=== PATIENT | male | born 1970 | race Hispanic/Latino ===

== ENCOUNTER 2017-05-16 12:00 | Observation (INO) | payer MEDICAID ==
[~2017-05-16] VITALS: Ht 170.2 cm; Wt 82.6 kg
[2017-05-16 13:45] LABS: BASOPHILS % (AUTO) 0.5 % (0.0-5.0); EOSINOPHILS % (AUTO) 0.3 % (0.0-8.0); HEMATOCRIT 46.1 % (42-54); MEAN CORPUSCULAR HEMOGLOBIN 31.2 pg (27.0-33.0); MEAN CORPUSCULAR HGB CONC 33.9 g/dL (32.0-36.0); MEAN CORPUSCULAR VOLUME 91.9 fL (79-99); NEUTROPHILS % (AUTO) 70.2 % (40.0-77.0); PLATELET COUNT (AUTO) 262 K/uL (130-400); RED BLOOD CELL COUNT(AUTO) 5.02 MIL/uL (4.50-6.20); RED CELL DISTRIBUTION WIDTH 14.4 % (11.0-15.5); WHITE BLOOD COUNT (AUTO) 6.9 K/uL (4.8-10.8)
[2017-05-16] MEDS ORDERED: ASPI-1012 PO (17:05)
[2017-05-16] MEDS ORDERED: AMLO1CAP10 PO (17:05)
[2017-05-16] MEDS ORDERED: SUCR1TAB2 PO (17:05)
[2017-05-16] MEDS ORDERED: RISP1TAB26 PO (17:05)
[2017-05-16] MEDS ORDERED: BUDE10.2 IH (17:07)
[2017-05-16] MEDS ORDERED: PRAV40TA3 PO (17:07)
[2017-05-16] MEDS ORDERED: NITR0.4T SL (17:08)
[2017-05-16] MEDS ORDERED: NABU500T3 PO (17:08)
[2017-05-16] MEDS ORDERED: CEFD300C3 PO (17:10)
[2017-05-16 22:12] LABS: RAPID PLASMA REAGIN REACTIVE (NONREACTIVE); RAPID PLASMA REAGIN TITER REACTIVE 1:1 (NONREACTIVE)
[2017-05-17] VITALS (19 sets, daily range): BP systolic 94–119; BP diastolic 53–86
[2017-05-17] MEDS ORDERED: LACTATED RINGERS 1000ML 1,000 ML IV ONE (07:06)
[2017-05-17] MEDS: CEFAZOLIN SODIUM 1 GM VIAL ONE ×2 (07:27→07:38)
[2017-05-17] MEDS ORDERED: ROPIVACAINE 0.5% 5MG/ML 30ML IJ ONE (07:28)
[2017-05-17] MEDS ORDERED: PROPOFOL 10 MG/ML 20ML VIAL IV ONE ×2 (07:31→08:34)
[2017-05-17] MEDS ORDERED: NEOSTIGMINE METHYLSULFATE 1MG/ML IV ONE (07:31)
[2017-05-17] MEDS ORDERED: DEXAMETHASONE SOD PHOSPHATE 10MG/ML 1ML VIAL ONE (07:31)
[2017-05-17] MEDS ORDERED: SUCCINYLCHOLINE 200MG/10ML SYR ONE (07:31)
[2017-05-17] MEDS ORDERED: GLYCOPYRROLATE 0.2 MG/ML 5 ML VIAL ONE (07:31)
[2017-05-17] MEDS ORDERED: ONDANSETRON HCL 4 MG/2 ML VIAL ONE (07:31)
[2017-05-17] MEDS ORDERED: LIDOCAINE PF 2% 5ML ABBOJECT ONE (07:31)
[2017-05-17] MEDS ORDERED: MIDAZOLAM HCL 1 MG/ML 2ML VIAL ONE (07:32)
[2017-05-17] MEDS ORDERED: FENTANYL CITRATE PF 50 MCG/1 ML 2ML VIAL ONE (07:32)
[2017-05-17] MEDS ORDERED: MEPERIDINE-PF 25 MG/ML SYG ONE ×2 (09:23→09:34)
[2017-05-17 09:37] LABS: HEMATOCRIT 42.1 % (42-54)
[2017-05-17] MEDS ORDERED: DEXTROSE 5%-LACTATED RINGERS 1,000 ML IV SCH (10:45)
[2017-05-17] MEDS ORDERED: ACETAMINOPHEN 325 MG TAB PO PRN (11:00)
[2017-05-17] MEDS ORDERED: MAGNESIUM HYDROXIDE 30 ML/UDCUP PO PRN (11:00)
[2017-05-17] MEDS ORDERED: BISACODYL 10 MG SUPP.RECT RC PRN (11:00)
[2017-05-17] MEDS ORDERED: PROMETHAZINE HCL 25 MG/ML 1ML AMPULE IM PRN (11:00)
[2017-05-17] MEDS ORDERED: MORPHINE SULFATE 10 MG/ML 1ML SYG IM PRN (11:00)
[2017-05-17] MEDS ORDERED: KETOROLAC TROMETHAMINE 15MG/ML IM PRN (12:15)
[2017-05-17] MEDS ORDERED: MORPHINE SULFATE 4 MG/1ML SYG IV PRN ×2 (12:15→14:15)
[2017-05-17] MEDS ORDERED: TRAMADOL HCL 50 MG TABLET PO SCH (12:15)
[2017-05-17] MEDS: WATER FOR INJECTION,STERILE 20 ML VIAL IJ SCH ×2 (13:41→21:00)
[2017-05-17] MEDS: CEFAZOLIN SODIUM 1 GM VIAL IVP SCH ×2 (13:41→21:00)
[2017-05-17] MEDS: TRAMADOL HCL 50 MG TABLET PO PRN (16:41)
[2017-05-17 17:51] LABS: HEMATOCRIT 41.6 % (42-54)
[2017-05-17] MEDS: KETOROLAC TROMETHAMINE 15MG/ML IV PRN (20:59)
[2017-05-17] MEDS ORDERED: NITROGLYCERIN 0.4 MG SL TAB SL PRN (23:30)
[2017-05-18] VITALS: BP 133/78
[2017-05-18] MEDS ORDERED: MORPHINE SULFATE 2 MG/ML 1ML SYG ONE ×2 (00:20→06:43)
[2017-05-18 00:27] LABS: HEMATOCRIT 39.7 % (42-54)
[2017-05-18 04:08] VITALS: BP 135/80
[2017-05-18] MEDS: ALBUTEROL SULFATE 0.083% 2.5 MG/3 ML INH IH SCH ×2 (05:49→11:01)
[2017-05-18] MEDS: CEFAZOLIN SODIUM 1 GM VIAL IVP SCH (05:50)
[2017-05-18] MEDS: WATER FOR INJECTION,STERILE 20 ML VIAL IJ SCH (05:50)
[2017-05-18] MEDS ORDERED: BUDESONIDE 0.5 MG/2 ML INH IH SCH ×2 (06:00)
[2017-05-18 06:14] LABS: HEMATOCRIT 39.9 % (42-54); MEAN CORPUSCULAR HEMOGLOBIN 31.4 pg (27.0-33.0); MEAN CORPUSCULAR HGB CONC 34.3 g/dL (32.0-36.0); MEAN CORPUSCULAR VOLUME 91.5 fL (79-99); PLATELET COUNT (AUTO) 216 K/uL (130-400); RED BLOOD CELL COUNT(AUTO) 4.36 MIL/uL (4.50-6.20); RED CELL DISTRIBUTION WIDTH 14.4 % (11.0-15.5); WHITE BLOOD COUNT (AUTO) 7.3 K/uL (4.8-10.8)
[2017-05-18 06:22] LABS: POTASSIUM 3.9 mmol/L (3.5-5.1)
[2017-05-18] MEDS ORDERED: FLU VACC QS2017-18 36MOS UP/PF 60 MCG/0.5 ML ML IM NR (06:30)
[2017-05-18] MEDS: SUCRALFATE 1 GM TABLET PO SCH ×2 (06:47→11:53)
[2017-05-18 08:00] VITALS: BP 136/83
[2017-05-18] MEDS: TRAMADOL HCL 50 MG TABLET PO PRN (08:35)
[2017-05-18] MEDS ORDERED: LOSARTAN 50 MG TABLET PO SCH (09:00)
[2017-05-18] MEDS ORDERED: ASPIRIN 325 MG TABLET PO SCH (09:00)
[2017-05-18] MEDS ORDERED: RISPERIDONE 1 MG TABLET PO SCH (09:00)
[2017-05-18] MEDS ORDERED: AMLODIPINE BESYLATE 2.5 MG TAB PO SCH (09:00)
[2017-05-18] MEDS ORDERED: CEFDINIR 300 MG PO SCH (09:00)
[2017-05-18] MEDS ORDERED: NABUMETONE 500 MG PO SCH (09:00)
[2017-05-18] MEDS: KETOROLAC TROMETHAMINE 15MG/ML IV PRN (10:16)
[2017-05-18 11:56] VITALS: BP 155/80
[2017-05-18 15:45] VITALS: BP 156/77
[2017-05-18] MEDS ORDERED: ATORVASTATIN CALCIUM 10 MG TABLET PO SCH (21:00)
== END 2017-05-18 17:00 | disposition home or self-care (01) ==
LOC: EDSTATUS 12:00 → DAHIP 05-17 06:36 → 4AH 05-17 09:50
DX: M75.91 Shoulder lesion, unspecified, right shoulder (principal); M75.101 Unspecified rotator cuff tear or rupture of right shoulder, not specified as traumatic; M75.41 Impingement syndrome of right shoulder; I11.9 Hypertensive heart disease without heart failure; R45.4 Irritability and anger; M65.9 Synovitis and tenosynovitis, unspecified; F17.210 Nicotine dependence, cigarettes, uncomplicated; J44.9 Chronic obstructive pulmonary disease, unspecified; E78.5 Hyperlipidemia, unspecified; K21.9 Gastro-esophageal reflux disease without esophagitis; I25.10 Atherosclerotic heart disease of native coronary artery without angina pectoris; J32.9 Chronic sinusitis, unspecified; F31.9 Bipolar disorder, unspecified; F14.90 Cocaine use, unspecified, uncomplicated; Z86.19 Personal history of other infectious and parasitic diseases; Z82.49 Family history of ischemic heart disease and other diseases of the circulatory system; Z79.899 Other long term (current) drug therapy; Z23 Encounter for immunization
CPT/HCPCS: 23130; 36415 ×4; 71046; 80048; 85025; 85027; 86592; 86780; 88304; 88311; 94640 ×2; 94664; 94760; 96372; 96374; 96375; 96376 ×2; 97161; A4218 ×2; A4606; A4930; A6223; C1713; G0008; G0378 ×35; G8978; G8979; G8980; G8981; G8982; G8983; J0330; J0690 ×3; J1100; J1885 ×3; J2001; J2175 ×2; J2250; J2405; J2704 ×2; J2710; J2795; J3010; J3490 ×2; J7030; J7120; Q2038; 90471